=== PATIENT | female | born 1985 | race Caucasian/White ===

== ENCOUNTER 2020-02-20 15:07 | Emergency (ER) | payer MEDICAID ==
[~2020-02-20] VITALS: Ht 175.3 cm; Wt 94.5 kg
[2020-02-20 15:33] VITALS: Ht 175.3 cm; Wt 94.5 kg
[2020-02-20] MEDS ORDERED: HYDROCODON-ACE1 EAC7 PO (19:51)
[2020-02-20 20:00] VITALS: BP 132/78
== END 2020-02-20 20:00 | disposition home or self-care (01) ==
LOC: D.ER 15:07
DX: K80.20 Calculus of gallbladder without cholecystitis without obstruction (principal)

== ENCOUNTER 2021-02-05 18:21 | Observation (INO) | payer OTHER ==
[~2021-02-05] VITALS: Ht 175.3 cm; Wt 84.8 kg
[~2021-02-05 18:21] MED LIST: HYDROCODON-ACE1 EAC7 PO
[2021-02-05 21:30] VITALS: BP 117/74
--- NOTE | 2021-02-05 22:14 | NUR ---
PT AMBULATED TO RESTROOM INDEPENDENTLY.
[2021-02-05 22:30] VITALS: BP 110/76
[2021-02-05 23:30] VITALS: BP 107/71
[2021-02-06] VITALS (7 sets, daily range): BP systolic 106–116; BP diastolic 57–605; Ht 175.3 cm; Wt 84.8 kg
--- NOTE | 2021-02-06 00:21 | NUR ---
PT GIVEN BLANKET AND HEAD OF BED ADJUSTED TO LEVEL OF COMFORT. CALL LIGHT IN REACH.
--- NOTE | 2021-02-06 06:31 | NUR ---
PT AMBULATED TO RESTROOM INDEPENDENTLY.
[2021-02-06 06:34] LABS: BASOPHILS 1.2 % (0-2); EOSINOPHILS 3.8 % (0-7); HEMATOCRIT 28.2 % (36.0-48.0); HEMOGLOBIN 8.9 g/dL (12-16); MCH 22.9 pg (26.0-34.0); MCHC 31.4 g/dL (31.0-37.0); MEAN PLATELET VOLUME 8.7 fL (7.4-10.4); PLATELET COUNT 291 10x3/uL (130-400); RBC 3.87 10x6/uL (4.00-5.40); RDW 16.1 % (11.5-14.5); WBC 7.4 10x3/uL (4.8-10.8)
[2021-02-06 06:54] LABS: APTT 27.8 SECONDS (22.8-39.4); INR 1.26 (0.85-1.17); PROTIME 14.6 SECONDS (11.6-15.0)
--- NOTE | 2021-02-06 07:11 | NUR ---
PATIENT SITTING UP IN BED, WATCHING TV. NO DISTRESS NOTED. DENIES ANY NEEDS AT THIS TIME. CALL HUFF IN REACH, SIDE RAILS UP X 2, BED IN LOW POSITION. AWAKE AND ALERT, RESPIRATIONS EVEN AND UNLABORED.
[2021-02-06 07:14] LABS: ALBUMIN 3.7 g/dL (3.4-5.0); ALKALINE PHOSPHATASE 90 U/L (30-120); ALT (SGPT) 21 U/L (10-68); CALC OSMOLALITY 281 mosm/kg (275-300); CALCIUM 8.3 mg/dL (8.5-10.1); CARBON DIOXIDE 27.6 mmol/L (21.0-32.0); CHLORIDE - SERUM 106 mmol/L (98-107); CKMB 0.2 U/L (0.0-3.6); CREATINE KINASE 55 UL (21-215); CREATININE - SERUM 0.7 mg/dL (0.6-1.3); GLUCOSE 86 mg/dL (74-106); MAGNESIUM - SERUM 2.3 mg/dL (1.8-2.4); POTASSIUM - SERUM 3.3 mmol/L (3.5-5.1); PROTEIN - SERUM 7.4 g/dL (6.4-8.2); SODIUM 143 mmol/L (136-145); TROPONIN-I < 0.017 ng/mL (0.000-0.060); UREA NITROGEN 6 mg/dL (7-18); eGFR NON AFRICAN AMERICAN > 90 mL/min (90-120)
--- NOTE | 2021-02-06 15:12 | NUR ---
PATIENT TAKEN TO THE GI LAB FOR EGD AT THIS TIME. CONSENTS SIGNED AND ON CHART. IV DRY AND INTACT. PATIENT AWAKE AND ALERT, ORIENTED X 4.
--- NOTE | 2021-02-06 17:20 | NUR ---
JERI PINA REMOVED PIV, CATHETER INTACT, PT DRESSING SELF 1744 SILVANA RIVERA DC TEACHING TO PT. 175 PT DC'D VIA WC ACCOMPANIED BY JERI TO POV WITH ALL BELONGINGS AND DC PACKET. FAMILY MEMBER DRIVING. ORDER FAXED TO DR. REID'S OFFICE TO CALL PT FOR 2 WEEK F/U APPT.
== END 2021-02-06 18:22 | disposition home or self-care (01) ==
LOC: D.ER 18:21 → D.EDHOLD 23:38 → OBSVTIME 23:39 → D.EDHOLD 02-06 18:22
PROVIDERS: Family Medicine; ADMIT Family Medicine; ATTEND Family Medicine
DX: K22.2 Esophageal obstruction (principal); R13.10 Dysphagia, unspecified